=== PATIENT | male | born 1980 | race Caucasian/White ===

== ENCOUNTER 2016-10-31 00:59 | Emergency (ER) | payer OTHER ==
[~2016-10-31] VITALS: Ht 177.8 cm; Wt 91.0 kg
[~2016-10-31 00:59] MED LIST: Z.0.NO CURRENT MEDS
[2016-10-31 01:02] VITALS: BP 159/96; PULSE 107; RESP 15; TEMP 98.1; O2SAT 97
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
== END 2016-10-31 05:37 | disposition left against medical advice (07) ==
LOC: NEPE 00:59
DX: Z04.1 Encounter for examination and observation following transport accident (principal)
CPT/HCPCS: 99281